=== PATIENT | male | born 1995 | race Two or more races ===

== ENCOUNTER 2024-10-22 17:42 | Emergency (ER) | payer OTHER ==
[~2024-10-22] VITALS: Ht 152.4 cm; Wt 57.2 kg
[2024-10-22] MEDS ORDERED: TETANUS DIPHTHERIA TOX. ADSOR 5 ML VIAL IM ONE (18:13)
[2024-10-22] MEDS ORDERED: TETANUS & DIPHTHERIA TOX,ADULT 0.5 ML VIAL IM ONE (18:15)
== END 2024-10-22 18:46 | disposition home or self-care (01) ==
LOC: ER 17:45
DX: S91.311A Laceration without foreign body, right foot, initial encounter (principal); W26.0XXA Contact with knife, initial encounter; Y93.89 Activity, other specified; Y92.89 Other specified places as the place of occurrence of the external cause; Y99.8 Other external cause status; Z91.013 Allergy to seafood
CPT/HCPCS: 12001; 90471; 90714; J1670

== ENCOUNTER 2024-11-02 07:24 | Emergency (ER) | payer OTHER ==
[~2024-11-02] VITALS: Ht 170.2 cm; Wt 59.0 kg
== END 2024-11-02 08:28 | disposition home or self-care (01) ==
LOC: ER 07:27
DX: Z48.02 Encounter for removal of sutures (principal); Z91.013 Allergy to seafood

== ENCOUNTER 2024-11-08 06:54 | Emergency (ER) | payer OTHER ==
[~2024-11-08] VITALS: Ht 170.2 cm; Wt 59.0 kg
== END 2024-11-08 09:02 | disposition home or self-care (01) ==
LOC: ER 06:54
DX: Z48.02 Encounter for removal of sutures (principal)